=== PATIENT | female | born 1995 | race Two or more races ===

== ENCOUNTER 2018-05-16 13:01 | Observation (INO) | payer BC ==
--- NOTE | 2018-05-16 14:56 | US ---
EXAMINATION: Biophysical profile HISTORY: Decreased movement COMPARISON: 05/14/2018 TECHNIQUE: Grayscale, M-mode imaging obtained. FINDINGS: There is a single live intrauterine noted. Heart rate is 138 bpm. Amniotic fluid index is 9 cm. Positive breathing, movement, and tone. IMPRESSION: Biophysical profile 07/09.
== END 2018-05-16 15:00 | disposition home or self-care (01) ==
LOC: MW.OB 13:01
PROVIDERS: ADMIT Obstetrics & Gynecology; ATTEND Obstetrics & Gynecology
DX: O36.8130 Decreased fetal movements, third trimester, not applicable or unspecified (principal); Z79.899 Other long term (current) drug therapy
CPT/HCPCS: 59025; 76819; 76819-26

== ENCOUNTER 2018-05-22 18:28 | Inpatient (IN) | payer BC ==
--- NOTE | 2018-05-22 19:10 | PCM.PREANE ---
Preanesthetic Assessment - Anesthesia/Transfusion/Family Hx Anesthesia History: Prior Anesthesia Without Reaction Family History of Anesthesia Reaction: No Transfusion History: No Prior Transfusion(s) - Review of Systems General: No Symptoms Pulmonary: No Symptoms Cardiovascular: No Symptoms Gastrointestinal: No Symptoms Neurological: No Symptoms Other: Reports: None - Physical Assessment NPO Status Date: 05/22/18 NPO Status Time: 14:00 ASA Class: 1 Mental Status: Alert & Oriented x3 Airway Class: Mallampati = 1 Dentition: Reports: Normal Dentition ROM/Head Extension: Full - Allergies Allergies/Adverse Reactions: Allergies Allergy/AdvReac Type Severity Reaction Status Date / Time No Known Allergies Allergy Verified 05/21/18 02:17 - Acknowledgements Anesthesia Type Planned: Epidural Pt an Appropriate Candidate for the Planned Anesthesia: Yes Alternatives and Risks of Anesthesia Discussed w Pt/Guardian: Yes Pt/Guardian Understands and Agrees with Anesthesia Plan: Yes PreAnesthesia Questionnaire - Past Health History Medical/Surgical History: Denies Medical/Surgical History Gastrointestinal History: Reports: Irritable Bowel Syndrome [employer] History: Reports: - HOME MEDS Home Medications: Home Meds PNV #116/Iron Fumarate/FA/DHA [Expecta Combo Pack] 1 tab PO DAILY 05/13 [History]
[2018-05-22] MEDS ORDERED: Lactated Ringers 1,000 ML IV SCH ×2 (19:25→20:15)
[2018-05-22] MEDS ORDERED: Sodium Chloride 0.9% 10 ML Syringe FLUSH PRN (19:46)
[2018-05-22] MEDS ORDERED: Sodium Chloride 0.9% 2.5 ML Syringe FLUSH PRN (19:46)
[2018-05-22] MEDS ORDERED: Tranexamic Acid 1,000 MG in Sodium Chloride 0.9% 100 ML IV PRN (21:02)
[2018-05-22] MEDS ORDERED: Water For Irrigation,Sterile 1,000 ML Container IRR PRN (21:02)
[2018-05-22] MEDS ORDERED: Nalbuphine 10 MG/1 ML Vial IVPUSH PRN (21:02)
[2018-05-22] MEDS ORDERED: Carboprost Tromethamine 250 MCG/1 ML Amp IM PRN (21:02)
[2018-05-22] MEDS ORDERED: Misoprostol 200 MCG Tab PO PRN (21:02)
[2018-05-22] MEDS ORDERED: Lidocaine 1% 50 ML MDV INJECT PRN (21:02)
[2018-05-22] MEDS ORDERED: Methylergonovine 0.2 MG/1 ML Amp IM PRN (21:02)
[2018-05-22] MEDS ORDERED: Butorphanol 1 MG/ML SDV IVPUSH PRN (21:02)
[2018-05-22] MEDS ORDERED: Terbutaline 1 MG/ML SDV SUBCUT PRN (21:03)
[2018-05-22] MEDS ORDERED: Oxytocin/0.9 % Sodium Chloride 30 UNIT/500 ML BAG IV SCH (21:15)
[2018-05-22] MEDS ORDERED: Ropivacaine HCl/PF 100 ML ONE (21:58)
[2018-05-22] MEDS ORDERED: fentaNYL 100 MCG/2 ML SDV ONE (21:58)
[2018-05-22] MEDS: Lactated Ringers 1,000 ML IV SCH ×2 (22:05→22:45)
--- NOTE | 2018-05-22 22:34 | PCM.PRNOTE ---
- Free Text/Narrative Note: Anes Note Patient requests [facility] for L&D. Risks and methods were discussed. Sitting position. sterle technique, chloroprep skin prep. Sterile drape applied, and asterile field was created. Level L2-L3. Single attempt with ease using BORIS technique. BORIS at 5cm. cath threaded 4 cm with ease. test dose 3 cc 1.5% lido with epi. negative. Loading dose 10cc pump solution. Epidural pump started at 8cc /hr with 6 cc q 20 min prn blous. Patietn reports excellent analgesia. Marc Sommer CRNA
[2018-05-22] MEDS ORDERED: Sodium Chloride 0.9% 1,000 ML IRR PRN (22:51)
[2018-05-23] MEDS ORDERED: Lanolin 100% Cream 7 GM Tube TOP PRN (01:56)
[2018-05-23] MEDS ORDERED: Acetaminophen 500 MG Tab PO PRN ×2 (01:56)
[2018-05-23] MEDS ORDERED: Benzocaine/Menthol 20%-0.5% Spray 78 GM Cannister TOP PRN (01:56)
[2018-05-23] MEDS ORDERED: Witch Hazel Medicated Pads 40/Jar TOP PRN (01:56)
[2018-05-23] MEDS ORDERED: Bisacodyl 10 MG Supp RECTAL PRN (01:56)
[2018-05-23] MEDS ORDERED: oxyCODONE 5 MG Tab PO PRN (01:56)
[2018-05-23] MEDS ORDERED: Ibuprofen 400 MG Tab PO PRN (01:56)
--- NOTE | 2018-05-23 02:03 | PCM.DEL ---
L & D Note - General Info Date of Service: 05/23/18 - Delivery Note Labor: Spontaneous, Augmented by ARM Delivery Outcome: Livebirth Infant Delivery Mode: Spontaneous Presentation: Right Occiput Anterior (SHERRI) Nuchal Cord: Present, Reduced Prep: Other Anesthesia Type: Epidural Amniotic Fluid Description: Meconium Stained Episiotomy Type: None Laceration: None Placenta: Intact, Spontaneous Cord: 3 Vessels Estimated Blood Loss: 150 : Bulb Syringe, Warmer Used Provider: Tam Carrion Score 1 min: 7 Score 5 min: 8 Second Stage Interventions: Reports: Pushing Effectively, Pushing, Pulls Own Legs Back Delivery Comments (Free Text/Narrative):: Weight: 2850grams - General Info Date of Service: 05/23/18 - Patient Data Weight - Most Recent: 169 lb Lab Results Last 24 Hours: Laboratory Results - last 24 hr 05/22/18 05/22/18 Range/Units 21:11 21:11 WBC 12.52 H (4.0-11.0) K/uL RBC 3.95 L (4.30-5.90) M/uL Hgb 11.4 L (12.0-16.0) g/dL Hct 33.9 L (36.0-46.0) % MCV 85.8 (80.0-98.0) fL MCH 28.9 (27.0-32.0) pg MCHC 33.6 (31.0-37.0) g/dL RDW Std Deviation 48.2 (28.0-62.0) fl RDW Coeff of Marivel 15 (11.0-15.0) % Plt Count 276 (150-400) K/uL MPV 9.30 (7.40-12.00) fL Nucleated RBC % 0.0 /100WBC Nucleated RBCs # 0 K/uL Blood Type O POSITIVE Antibody Screen NEGATIVE Med Orders - Current: Current Medications Discontinued Medications Butorphanol Tartrate (Stadol) 1 mg IVPUSH Q1H PRN PRN Reason: Pain Carboprost Tromethamine (Hemabate Ds) 250 mcg IM ASDIRECTED PRN PRN Reason: Post Hemorrhage Fentanyl (Sublimaze) Confirm Administered Dose 100 mcg .ROUTE .[facility] ONE Stop: 05/22/18 21:59 Lactated Ringer's (Ringers, Lactated) 1,000 mls @ 500 mls/hr IV .BOLUS [facility] Last Admin: 05/22/18 19:25 Dose: 500 mls/hr Lactated Ringer's (Ringers, Lactated) 1,000 mls @ 125 mls/hr IV ASDIRECTED [facility] Tranexamic Acid 1,000 mg/ (Sodium Chloride) 110 mls @ 660 mls/hr IV ONETIME PRN PRN Reason: Bleeding Lactated Ringer's (Ringers, Lactated) 1,000 mls @ 150 mls/hr IV ASDIRECTED [facility] Oxytocin/Sodium Chloride (Oxytocin 30 Unit/500 Ml-Ns) 30 unit in 500 mls @ 999 mls/hr IV TITRATE [facility] Ropivacaine (Naropin 0.2%) Confirm Administered Dose 100 mls @ as directed .ROUTE .[facility] ONE Stop: 05/22/18 21:59 Sodium Chloride (Sodium Chloride 0.9%) 1,000 mls @ 500 mls/hr IRR ASDIRECTED PRN PRN Reason: Other Lidocaine HCl (Xylocaine 1%) 50 ml INJECT .ONCE PRN PRN Reason: Laceration repair Methylergonovine Maleate (Methergine) 0.2 mg IM ASDIRECTED PRN PRN Reason: Post Hemorrhage Misoprostol (Cytotec) 200 mcg PO .ONCE PRN PRN Reason: Post Hemorrhage Nalbuphine HCl (Nubain) 10 mg IVPUSH Q1H PRN PRN Reason: Pain (severe 7-10) Sodium Chloride (Saline Flush) 10 ml FLUSH ASDIRECTED PRN PRN Reason: Keep Vein Open Sodium Chloride (Saline Flush) 2.5 ml FLUSH ASDIRECTED PRN PRN Reason: Keep Vein Open Sterile Water (Sterile Water For Irrigation) 1,000 ml IRR ASDIRECTED PRN PRN Reason: delivery Terbutaline Sulfate (Brethine) 0.25 mg SUBCUT ASDIRECTED PRN PRN Reason: Tacysystole - Problem List & Annotations (1) Vaginal delivery SNOMED Code(s): 779635107 Code(s): O80 - ENCOUNTER FOR FULL-TERM UNCOMPLICATED DELIVERY Status: Acute Current Visit: Yes - Problem List Review Problem List Initiated/Reviewed/Updated: Yes - My Orders Last 24 Hours: My Active Orders 05/22/18 19:46 Non Stress Test [RC] PER UNIT ROUTINE Up ad Felicitas [RC] ASDIRECTED Vaginal Exam [RC] Click to Edit Vital Signs [RC] PER UNIT ROUTINE 05/22/18 21:02 Heart Tones [RC] CONTINUOUS May Shower [RC] ASDIRECTED Notify Provider [RC] PRN 05/22/18 21:03 Bedrest Bathroom Privileges [RC] ASDIRECTED Communication Order [RC] ASDIRECTED Communication Order [RC] ASDIRECTED Communication Order [RC] ASDIRECTED Notify Provider [RC] PRN Notify Provider [RC] PRN Notify Provider [RC] STAT Oxygen Therapy [RC] ASDIRECTED Vaginal Exam [RC] PRN 05/23/18 01:34 BLOOD GAS ARTERIAL UMBILICAL [BG] Timed BLOOD GAS VENOUS UMBILICAL [BG] Timed 05/23/18 01:56 Patient Status [ADT] Routine May Shower [RC] ASDIRECTED Up ad Felicitas [RC] ASDIRECTED Vital Signs [RC] PER UNIT ROUTINE Acetaminophen [Tylenol Extra Strength] 1,000 mg PO Q4H PRN Acetaminophen [Tylenol Extra Strength] 500 mg PO Q4H PRN Benzocaine/Menthol [Dermoplast Pain Relief 20%-0.5% Normal] 78 gm TOP ASDIRECTED PRN Bisacodyl [Dulcolax] 10 mg RECTAL .ONCE PRN Docusate Sodium [Colace] 100 mg PO BID PRN Ibuprofen [Motrin] 400 mg PO Q4H PRN Ibuprofen [Motrin] 800 mg PO Q6H PRN Lanolin [Lansinoh HPA] See Dose Instructions TOP ASDIRECTED PRN Witch Tova [Tucks] 1 pad TOP ASDIRECTED PRN oxyCODONE 5 mg PO Q2H PRN Assess Lochia [WOMSER] Per Unit Routine Assess Uterine Involution [WOMSER] Per Unit Routine Breast Pump [WOMSER] Per Unit Routine Peripheral IV Discontinue [OM.PC] Routine Resuscitation Status Routine 05/23/18 01:57 Perineal Care [OM.PC] Per Unit Routine 05/23/18 Breakfast Regular Diet [DIET] 05/24/18 05:11 HEMOGLOBIN/HEMATOCRIT,HH [HEME] Timed
--- NOTE | 2018-05-23 06:44 | OR ---
SURGEON: Kinga Villanueva MD DATE OF PROCEDURE: 05/23/2018 PREOPERATIVE DIAGNOSES: 1. Term at 37 weeks and 6 days. 2. Spontaneous labor. POSTOPERATIVE DIAGNOSES: 1. Term at 37 weeks and 6 days. 2. Spontaneous labor. 3. Delivered. PROCEDURE: Spontaneous vaginal delivery. ANESTHESIA: Epidural. ESTIMATED BLOOD LOSS: 150 mL. COMPLICATIONS: None. DISPOSITION: Mother and baby stable in Labor and Delivery room, [facility]. FINDINGS: Female , weight 2850 g, scores of 7 and 8 at 1 and 5 minutes respectively. Meconium-stained amniotic fluid. Grossly normal placenta with 3- vessel cord. Intact perineum. BRIEF HISTORY: Chelly is a 23-year-old G2, P1, who is a patient of the [facility], [facility], [facility]'s [facility] physicians are taking care of [facility] patients, as their physician, Dr. Murrell, is away on vacation. She presented last evening at 37 weeks and 5 days' gestation with a history of irregular contractions, which were increasing in frequency and intensity. She denied vaginal bleeding or leakage of fluid, and reported movements. On admission, when she was put on the monitor, she was found to have variable decelerations, poncho every 4 to 7 minutes, and on VE by admitting RN was reported to be 3 to 4 cm dilated, 80% effaced, and station -3. Of note, her care was complicated by decreased movement within the last one week, for which, she was evaluated on Labor and Delivery and found to have unprovoked decelerations on her NSTs, but the BPP was reassuring. She was then brought back couple of times for BPP alternating NSTs for well-being. Her GBS status was negative. She was then monitored continuously on admission and given IV fluids. The strip improved and when she was re-examined 2 hours later, she was 4 cm dilated, at this stage, I went ahead and performed an artificial rupture of membrane with clear amniotic fluid noted and then placed an IUPC with a scalp electrode for better intrapartum monitoring. The pattern of deep variable decelerations was consistent with possible cord compression. Shortly after the artificial rupture of membranes, she requested for an epidural, which was placed successively and, thereafter, she was noted to have recurrent variable decelerations down to the 60s to 70s lasting up to 20 to 40 seconds and returning back to baseline. Her blood pressure was stable post the epidural, and on the monitor, she was poncho every 1 minute, so I gave her a dose of terbutaline subcutaneously and also continued to change maternal position whilst she received facial oxygen. The decelerations continued to be recurrent, and amnio infusion was started. After these measures, the strip improved and we continued to monitor her. I re-examined her about an hour later, she was 6 cm dilated, 90% effaced, and the head had come down from -3 to 0 station. About an hour later, the decelerations became recurrent again, they were still variable in pattern and down 70s. On VE she was 7 cm, with contractions every 1 to 2 minutes. Just as I was about to start another bolus of amnioinfusion, late decelerations were observed, she was reexamined and was found to be fully dilated at station +1. She was instructed to commence active pushing, which she did quite effectively, bringing the head down to a +4 station with 2 contractions and was set up for delivery in modified dorsal lithotomy position. DESCRIPTION OF PROCEDURE: She had a spontaneous vaginal delivery of a live female in right occipitoanterior position. Fresh meconium was noted at delivery. With restitution of the infant's head, tight nuchal cord was noted, I was unable to reduce it until after anterior and posterior shoulders and the rest of the baby were delivered without difficulty. Also, of note was the cord extending down around the baby, wrapped around the baby's trunk. The cord was then reduced after delivery. The baby was vigorous at . The cord was double clamped and cut, and the was handed over to the nursery nurse. Dr. Carrion, the dairy technician on-call, who had been called in, stepped into the room just as the baby was being delivered. With delivery of the , oxytocin infusion, titration was started for active management of third stage of labor. Cord blood and gas samples were obtained. Placenta was delivered with controlled cord traction, appeared to be complete and intact. Examination of the perineum revealed no lacerations. Uterine massage was performed, the uterus was found to be well contracted below the umbilicus. The patient tolerated the procedure well. Sponge, instrument, and needle counts were correct at the end of the delivery. ADUMVIV / MODL /[id number] MTDD
[2018-05-23] MEDS: Ibuprofen 800 MG Tab PO PRN ×3 (07:30→22:09)
--- NOTE | 2018-05-23 09:02 | PCM48HPAN ---
Post Anesthesia Note - EVALUATION WITHIN 48HRS OF ANESTHETIC Vital Signs in Normal Range: Yes Patient Participated in Evaluation: Yes Respiratory Function Stable: Yes Airway Patent: Yes Cardiovascular Function Stable: Yes Hydration Status Stable: Yes Pain Control Satisfactory: Yes Nausea and Vomiting Control Satisfactory: Yes Mental Status Recovered: Yes Resp Rate: 20 - COMMENTS/OBSERVATIONS Free Text/Narrative:: Pt doing well this AM with no complaints. Pt states she has been up walking without any problems. No apparent anesthesia complications.
[2018-05-23] MEDS: Docusate Sodium 100 MG Cap PO PRN ×2 (09:57→22:09)
--- NOTE | 2018-05-24 07:48 | PCM.PNPP ---
- General Info Date of Service: 05/24/18 Functional Status: Reports: Pain Controlled, Tolerating Diet, Ambulating, Urinating - Review of Systems General: Denies: Fever, Weakness Pulmonary: Denies: Shortness of Breath Cardiovascular: Denies: Chest Pain, Palpitations, Lightheadedness Gastrointestinal: Denies: Nausea, Vomiting Genitourinary: Denies: Flank Pain Skin: Reports: No Symptoms Psychiatric: Reports: No Symptoms - General Info Date of Service: 05/24/18 - Patient Data Vital Signs - Most Recent: Last Vital Signs Temp 36.6 C 05/24/18 04:34 Pulse 75 05/24/18 04:34 Resp 18 05/24/18 04:34 BP 103/55 L 05/24/18 04:34 Pulse Ox 96 05/24/18 04:34 Weight - Most Recent: 76.657 kg Lab Results - Last 24 Hours: Laboratory Results - last 24 hr 05/24/18 Range/Units 05:27 Hgb 10.2 L (12.0-16.0) g/dL Hct 32.0 L (36.0-46.0) % Med Orders - Current: Current Medications Acetaminophen (Tylenol Extra Strength) 500 mg PO Q4H PRN PRN Reason: Pain Acetaminophen (Tylenol Extra Strength) 1,000 mg PO Q4H PRN PRN Reason: Pain Benzocaine/Menthol (Dermoplast Pain Relief 20%-0.5% [place]) 78 gm TOP ASDIRECTED PRN PRN Reason: Perineal Comfort Measure Bisacodyl (Dulcolax) 10 mg RECTAL .ONCE PRN PRN Reason: Constipation Docusate Sodium (Colace) 100 mg PO BID PRN PRN Reason: Constipation Last Admin: 05/23/18 22:09 Dose: 100 mg Emollient Ointment (Lansinoh Hpa) 0 gm TOP ASDIRECTED PRN PRN Reason: Sore Nipples Last Admin: 05/23/18 09:58 Dose: 1 applic Ibuprofen (Motrin) 400 mg PO Q4H PRN PRN Reason: Pain Ibuprofen (Motrin) 800 mg PO Q6H PRN PRN Reason: Pain Last Admin: 05/23/18 22:09 Dose: 800 mg Oxycodone HCl (Oxycodone) 5 mg PO Q2H PRN PRN Reason: Pain Witch Tova (Tucks) 1 pad TOP ASDIRECTED PRN PRN Reason: comfort care Discontinued Medications Butorphanol Tartrate (Stadol) 1 mg IVPUSH Q1H PRN PRN Reason: Pain Carboprost Tromethamine (Hemabate Ds) 250 mcg IM ASDIRECTED PRN PRN Reason: Post Hemorrhage Fentanyl (Sublimaze) Confirm Administered Dose 100 mcg .ROUTE .[facility] ONE Stop: 05/22/18 21:59 Last Admin: 05/23/18 03:14 Dose: Not Given Lactated Ringer's (Ringers, Lactated) 1,000 mls @ 500 mls/hr IV .BOLUS [facility] Last Admin: 05/22/18 19:25 Dose: 500 mls/hr Lactated Ringer's (Ringers, Lactated) 1,000 mls @ 125 mls/hr IV ASDIRECTED [facility] Tranexamic Acid 1,000 mg/ (Sodium Chloride) 110 mls @ 660 mls/hr IV ONETIME PRN PRN Reason: Bleeding Lactated Ringer's (Ringers, Lactated) 1,000 mls @ 150 mls/hr IV ASDIRECTED [facility] Last Admin: 05/22/18 22:45 Dose: 150 mls/hr Oxytocin/Sodium Chloride (Oxytocin 30 Unit/500 Ml-Ns) 30 unit in 500 mls @ 999 mls/hr IV TITRATE [facility] Last Admin: 05/23/18 01:34 Dose: 999 mls/hr Ropivacaine (Naropin 0.2%) Confirm Administered Dose 100 mls @ as directed .ROUTE .[facility] ONE Stop: 05/22/18 21:59 Last Admin: 05/23/18 03:14 Dose: Not Given Sodium Chloride (Sodium Chloride 0.9%) 1,000 mls @ 500 mls/hr IRR ASDIRECTED PRN PRN Reason: Other Lidocaine HCl (Xylocaine 1%) 50 ml INJECT .ONCE PRN PRN Reason: Laceration repair Methylergonovine Maleate (Methergine) 0.2 mg IM ASDIRECTED PRN PRN Reason: Post Hemorrhage Misoprostol (Cytotec) 200 mcg PO .ONCE PRN PRN Reason: Post Hemorrhage Nalbuphine HCl (Nubain) 10 mg IVPUSH Q1H PRN PRN Reason: Pain (severe 7-10) Sodium Chloride (Saline Flush) 10 ml FLUSH ASDIRECTED PRN PRN Reason: Keep Vein Open Sodium Chloride (Saline Flush) 2.5 ml FLUSH ASDIRECTED PRN PRN Reason: Keep Vein Open Sterile Water (Sterile Water For Irrigation) 1,000 ml IRR ASDIRECTED PRN PRN Reason: delivery Terbutaline Sulfate (Brethine) 0.25 mg SUBCUT ASDIRECTED PRN PRN Reason: Tacysystole - Infant Interaction Support Person: - Recovery Exam Fundal Tone: Firm Fundal Level: At Umbilicus Fundal Placement: Midline Lochia Amount: Scant Lochia Color: Rubra/Red Perineum Description: Redness Episiotomy/Laceration: None Bladder Status: Voiding Urinary Elimination: Voided - Exam General: Alert, Oriented Lungs: Normal Respiratory Effort Cardiovascular: Regular Rate, Regular Rhythm GI/Abdominal Exam: Normal Bowel Sounds, Soft Extremities: Pedal Edema (1+). No: Devon's Sign Skin: Warm, Dry, Intact Psy/Mental Status: Alert, Normal Affect, Normal Mood - Problem List & Annotations (1) Vaginal delivery SNOMED Code(s): 612766284 Code(s): O80 - ENCOUNTER FOR FULL-TERM UNCOMPLICATED DELIVERY Status: Acute Current Visit: Yes - Problem List Review Problem List Initiated/Reviewed/Updated: Yes - Assessment Assessment:: PPD 1 status post - Plan Plan:: VS are stable, labs reassuring. Patient is feeling well and ready to go home today. Discharge instructions reviewed. Follow up at clinic 6 weeks. Infection and bleeding warnings reviewed.
[2018-05-24 07:54] VITALS: BP 117/69
== END 2018-05-24 09:45 | disposition home or self-care (01) | DRG 560 ==
LOC: MW.OBCHECK 18:28 → MW.OB 18:31 → MW.OBCHECK 21:34 → OBSVTOIN 05-23 01:33 → MW.OB 05-23 06:11
PROVIDERS: ADMIT Obstetrics & Gynecology; ATTEND Obstetrics & Gynecology
PROC: 10E0XZZ Delivery of Products of Conception, External Approach (ICD-10-PCS; principal; 2018-05-23)
PROC: 10907ZC Drainage of Amniotic Fluid, Therapeutic from Products of Conception, Via Natural or Artificial Opening (ICD-10-PCS; 2018-05-23)
PROC: 10H07YZ Insertion of Other Device into Products of Conception, Via Natural or Artificial Opening (ICD-10-PCS; 2018-05-23)
DX: O77.0 Labor and delivery complicated by meconium in amniotic fluid (principal); O76 Abnormality in fetal heart rate and rhythm complicating labor and delivery; O69.1XX0 Labor and delivery complicated by cord around neck, with compression, not applicable or unspecified; Z3A.37 37 weeks gestation of pregnancy; Z37.0 Single live birth
CPT/HCPCS: 36415; 51702; 59025; 59409; 82803; 85014; 85018; 85027; 86850; 86900; 86901; 88307; A9270-GY; J2590; J7120